=== PATIENT | male | born 1965 | race Caucasian/White ===

== ENCOUNTER 2016-11-22 13:01 | Day surgery (SDC) | payer OTHER ==
[~2016-11-22 13:01] MED LIST: ALLE24TA PO; TAB-TAB PO; VITA500S PO
[2016-11-22 13:27] VITALS: BP 135/81; PULSE 81; RESP 20; TEMP 98.1; O2SAT 99
[2016-11-22] MEDS ORDERED: MULTTAB67 PO (13:33)
[2016-11-22] MEDS ORDERED: ASCO500C PO (13:33)
[2016-11-22] MEDS ORDERED: [UNRECOGNIZED DRUG - CODE] PO (13:33)
[2016-11-22] MEDS ORDERED: TRIAMCINOLONE ACETONIDE 40 MG/ML VIAL ONE (14:15)
[2016-11-22 14:35] VITALS: BP 113/73; PULSE 72; RESP 20; O2SAT 100
--- NOTE | 2016-11-22 14:36 | PD.RAD ---
Post Procedure Progress Note Pre Procedure Diagnosis: (1) Back pain Post Procedure Diagnosis: (1) Back pain Procedure Date: Nov 22, 2016 Supervising Radiologist: Gaurav Hernández Proceduralist/Assist: RT Suma(R) Anesthesia: Local Plan of Activity Patient to Unit: ROPU Patient Condition: Good See PACS Report for procedural detail/treatment Spinal Procedure Nerve Root Injection L5, S1 Gaurav Hernández MD Nov 22, 2016 14:36
[2016-11-22] MEDS ORDERED: IOHEXOL 300 MG/ML 50 ML BTL (for RAD DIAG) IT ONE (14:42)
--- NOTE | 2016-11-22 16:12 | RADRPT ---
EXAM DATE/TIME: 11/22/2016 14:24 [facility] COMPARISON: No previous studies available for comparison. INDICATIONS : Patient presents with lower back pain in need of nerve root injection for pain injection. MEDICAL HISTORY : Obstructive sleep apnea BPH SURGICAL HISTORY : Prostate surgery Rotator cuff repair ENCOUNTER: Initial ACUITY: 4 - 6 months PAIN SCORE: 0/10 LOCATION: n/a FLUORO TIME: 1.6 minutes CONTRAST: 1 cc ACCESS LEVEL: Left L5 MEDICATIONS: 1.) 1 cc triamcinolone (Kenalog) IA 2.) 1 cc Lidocaine IA RESPONSE: Pre procedure pain level was 0/10. Post procedure pain level was 0/10. PROCEDURE : 1. Fluoroscopically guided nerve root injection. The risks, benefits and alternatives to the procedure were explained and verbal and written consent w as obtained. The site was prepped in sterile fashion. Full sterile technique was used, including ca p, mask, sterile gloves and gown and a large sterile sheet. Hand hygiene and 2% chlorhexidine and/or betadine/alcohol prep was utilized per protocol for cutaneous antisepsis. The skin and subcutaneous tissues were infiltrated with local anesthetic solution. With fluoroscopic guidance the targeted nerve root was localized and positive contrast was injected t o confirm epidural spread. Following this the prescribed medication was injected surrounding the ner ve root sleeve. The patient's preprocedure pain and post procedure pain levels were recorded. CONCLUSION: Uncomplicated fluoroscopically guided nerve root injection as above. Gaurav Hernández MD on November 22, 2016 at 16:10 Board Certified Radiologist. This report was verified electronically.
--- NOTE | 2016-11-22 16:12 | RADRPT ---
EXAM DATE/TIME: 11/22/2016 14:24 [facility] COMPARISON: No previous studies available for comparison. INDICATIONS : Patient presents with lower back pain in need of nerve root injection for pain injection. MEDICAL HISTORY : Obstructive sleep apnea BPH SURGICAL HISTORY : Prostate surgery Rotator cuff repair ENCOUNTER: Initial ACUITY: 4 - 6 months PAIN SCORE: 0/10 LOCATION: N/A FLUORO TIME: 1.6 minutes CONTRAST: 1 cc ACCESS LEVEL: Left S1 MEDICATIONS: 1.) 1 cc triamcinolone (Kenalog) IA 2.) 1 cc Lidocaine IA RESPONSE: Pre procedure pain level was 0/10. Post procedure pain level was 0/10. PROCEDURE : 1. Fluoroscopically guided nerve root injection. The risks, benefits and alternatives to the procedure were explained and verbal and written consent w as obtained. The site was prepped in sterile fashion. Full sterile technique was used, including ca p, mask, sterile gloves and gown and a large sterile sheet. Hand hygiene and 2% chlorhexidine and/or betadine/alcohol prep was utilized per protocol for cutaneous antisepsis. The skin and subcutaneous tissues were infiltrated with local anesthetic solution. With fluoroscopic guidance the targeted nerve root was localized and positive contrast was injected t o confirm epidural spread. Following this the prescribed medication was injected surrounding the ner ve root sleeve. The patient's preprocedure pain and post procedure pain levels were recorded. CONCLUSION: Uncomplicated fluoroscopically guided nerve root injection as above. Gaurav Hernández MD on November 22, 2016 at 16:11 Board Certified Radiologist. This report was verified electronically.
== END 2016-11-22 15:20 | disposition home or self-care (01) ==
LOC: HROP 13:01 → HRIP 13:02 → HROP 15:20
PROVIDERS: ATTEND Physical Medicine & Rehabilitation
DX: M54.16 Radiculopathy, lumbar region (principal); M54.5 Low back pain; G47.33 Obstructive sleep apnea (adult) (pediatric); N40.0 Benign prostatic hyperplasia without lower urinary tract symptoms
CPT/HCPCS: 64483; 64484; J3301; Q9967

== ENCOUNTER 2016-12-19 13:08 | Day surgery (SDC) | payer OTHER ==
[~2016-12-19 13:08] MED LIST changes: +ASCO500C PO; +MULTTAB67 PO; +[UNRECOGNIZED DRUG - CODE] PO
[2016-12-19 13:29] VITALS: BP 140/80; PULSE 83; RESP 20; TEMP 97.4; O2SAT 97
[2016-12-19] MEDS ORDERED: TRIAMCINOLONE ACETONIDE 40 MG/ML VIAL ONE (13:56)
[2016-12-19 14:25] VITALS: BP 126/76; PULSE 82; RESP 20; TEMP 97.4; O2SAT 98
--- NOTE | 2016-12-19 14:29 | PD.RAD ---
Post Procedure Progress Note Pre Procedure Diagnosis: (1) Back pain Post Procedure Diagnosis: (1) Back pain Procedure Date: Dec 19, 2016 Supervising Radiologist: Gaurav Hernández Proceduralist/Assist: Sharonda Bassett RT(R)(), RT Shahram(R)() Anesthesia: Local Plan of Activity Patient to Unit: ROPU Patient Condition: Good See PACS Report for procedural detail/treatment Spinal Procedure Nerve Root Injection L4, L5 Gaurav Hernández MD Dec 19, 2016 14:29
[2016-12-19] MEDS ORDERED: IOHEXOL 300 MG/ML 50 ML BTL (for RAD DIAG) ONE (14:34)
--- NOTE | 2016-12-19 16:21 | RADRPT ---
EXAM DATE/TIME: 12/19/2016 14:02 [facility] COMPARISON: NERVE ROOT INJ, LUMB, INIT LVL,LT, November 22, 2016, 14:24. INDICATIONS : Patient with history of back pain. MEDICAL HISTORY : 1. sleep apnea 2. BPH SURGICAL HISTORY : 1. NRI 2. Prostate surgery 3. Rotator cuff repair ENCOUNTER: Subsequent ACUITY: 4 - 6 months PAIN SCORE: 7/10 LOCATION: Left lumbar FLUORO TIME: 2.1 minutes CONTRAST: 1 cc Omnipaque (iohexol) 300 ACCESS LEVEL: Left L4 MEDICATIONS: 1.) 1 cc triamcinolone (Kenalog) IA 2.) 1 cc Lidocaine IA 8 RESPONSE: Pre procedure pain level was 7/10. Post procedure pain level was 1/10. PROCEDURE : 1. Fluoroscopically guided nerve root injection. The risks, benefits and alternatives to the procedure were explained and verbal and written consent w as obtained. The site was prepped in sterile fashion. Full sterile technique was used, including ca p, mask, sterile gloves and gown and a large sterile sheet. Hand hygiene and 2% chlorhexidine and/or betadine/alcohol prep was utilized per protocol for cutaneous antisepsis. The skin and subcutaneous tissues were infiltrated with local anesthetic solution. With fluoroscopic guidance the targeted nerve root was localized and positive contrast was injected t o confirm epidural spread. Following this the prescribed medication was injected surrounding the ner ve root sleeve. The patient's preprocedure pain and post procedure pain levels were recorded. CONCLUSION: Uncomplicated fluoroscopically guided nerve root injection as above. Gaurav Hernández MD on December 19, 2016 at 16:19 Board Certified Radiologist. This report was verified electronically.
--- NOTE | 2016-12-19 16:22 | RADRPT ---
EXAM DATE/TIME: 12/19/2016 14:02 [facility] COMPARISON: NERVE ROOT INJ, LUMB, SCND LVL,LT, November 22, 2016, 14:24. INDICATIONS : Patient with history of back pain. MEDICAL HISTORY : 1. Sleep apnea 2.BPH SURGICAL HISTORY : 1. Prostate surgery 2. Rotator cuff repair 3. NRI ENCOUNTER: Subsequent ACUITY: 4 - 6 months PAIN SCORE: 7/10 LOCATION: Left lower back pain. FLUORO TIME: 2.1 minutes CONTRAST: 1 cc Omnipaque (iohexol) 300 ACCESS LEVEL: Left L5 MEDICATIONS: 1.) 1 cc triamcinolone (Kenalog) IA 2.) 1 cc Lidocaine IA RESPONSE: Pre procedure pain level was 7/10. Post procedure pain level was 1/10. PROCEDURE : 1. Fluoroscopically guided nerve root injection. The risks, benefits and alternatives to the procedure were explained and verbal and written consent w as obtained. The site was prepped in sterile fashion. Full sterile technique was used, including ca p, mask, sterile gloves and gown and a large sterile sheet. Hand hygiene and 2% chlorhexidine and/or betadine/alcohol prep was utilized per protocol for cutaneous antisepsis. The skin and subcutaneous tissues were infiltrated with local anesthetic solution. With fluoroscopic guidance the targeted nerve root was localized and positive contrast was injected t o confirm epidural spread. Following this the prescribed medication was injected surrounding the ner ve root sleeve. The patient's preprocedure pain and post procedure pain levels were recorded. CONCLUSION: Uncomplicated fluoroscopically guided nerve root injection as above. Gaurav Hernández MD on December 19, 2016 at 16:20 Board Certified Radiologist. This report was verified electronically.
== END 2016-12-19 14:50 | disposition home or self-care (01) ==
LOC: HROP 13:08 → HRIP 13:11 → HROP 14:50
PROVIDERS: ATTEND Physical Medicine & Rehabilitation
DX: M54.9 Dorsalgia, unspecified (principal); N40.0 Benign prostatic hyperplasia without lower urinary tract symptoms; G47.30 Sleep apnea, unspecified
CPT/HCPCS: 64483; 64484; J3301; Q9967